=== PATIENT | male | born 1990 | race Caucasian/White ===

== ENCOUNTER 2017-01-24 18:49 | Inpatient (IN) | payer SELFPAY ==
[~2017-01-24] VITALS: Ht 162.6 cm; Wt 66.4 kg
[2017-01-24 19:27] VITALS: BP 131/70; PULSE 113; RESP 18; TEMP 97.5; O2SAT 96
[2017-01-24] MEDS ORDERED: SODIUM CHLOR 0.9% 1000 ML INJ 1,000 ML IV ONE (23:39)
[2017-01-24] MEDS ORDERED: SODIUM CHLORIDE 0.9% FLUSH 10 ML FLUSH IVF PRN (23:45)
[2017-01-24] MEDS ORDERED: ONDANSETRON HCL 4 MG/2 ML VIAL IV PUSH ONE (23:45)
--- NOTE | 2017-01-24 23:45 | PD ---
HPI Chief Complaint: Abnormal Results Time Seen by Provider: 23:39 Travel History International Travel<30 days: No Contact w/Intl Traveler<30days: No Traveled to known affect area: No History of Present Illness HPI 26-year-old male presents to the emergency department by private transportation for complaint of elevated blood sugar nausea and vomiting and no insulin since yesterday. Patient is visiting from [place]. Patient has been an insulin- dependent diabetic 14 years. Patient denies any fever or chills hematemesis coffee-ground emesis chest pain shortness of breath abdominal flank pain or dysuria. Patient has noted decreased urine output. Patient complains of generalized weakness. Patient typically takes Humalog 18 units and Lantus 33 units daily reportedly. PFSH Past Medical History Narrative Medical Diabetes; no surgeries; no tobacco use; nursing notes reviewed Diabetes: Yes ?: Not Social History Tobacco Use: No Allergies-Medications (Allergen,Severity, Reaction): Coded Allergies: No Known Allergies (Unverified , 01/24/17) Reported Meds & Prescriptions Reported Meds & Active Scripts Active Reported Lantus Inj (Insulin Glargine) 1,000 Unit/10 Ml Vial 33 Units SQ HS Humalog Inj (Insulin Human Lispro) 1,000 Unit/10 Ml Vial 5-25 Units SQ ACHS Max dose at bedtime:( )units; sugars < 70,(0)units; sugars 150-199,(5)units; sugars 200-249,(10)units; sugars 250-299,(15)units; sugars 300-349,(20)units; sugars more than 349,(25)units. Narrative Medication Insulin Review of Systems Except as stated in HPI: all other systems reviewed are Neg General / Constitutional: No: Fever, Chills HENT: No: Congestion Cardiovascular: No: Chest Pain or Discomfort Respiratory: No: Shortness of Breath Gastrointestinal: Positive: Nausea, Vomiting, No: Abdominal Pain Genitourinary: Positive: Decreased Urinary Output Musculoskeletal: No: Pain Skin: No Rash Neurologic: Positive: Weakness Psychiatric: No: Anxiety Hematologic/Lymphatic: No: Lymph Node Enlargement Physical Exam Narrative GENERAL: Well-developed well-nourished male in obvious discomfort and mild respiratory distress; GCS 15; triage glucose 482 SKIN: Warm and dry. HEAD: Normocephalic. EYES: No scleral icterus. No injection or drainage. ENT: Mucous membranes dry NECK: Supple, trachea midline. No JVD or lymphadenopathy. CARDIOVASCULAR: Increased Regular rate and rhythm without murmurs, gallops, or rubs. RESPIRATORY: Breath sounds equal bilaterally. No accessory muscle use. GASTROINTESTINAL: Abdomen soft, non-tender, nondistended. MUSCULOSKELETAL: No cyanosis, or edema. BACK: Nontender without obvious deformity. No CVA tenderness. Data Data Last Documented VS Vital Signs Date Time Temp Pulse Resp B/P (MAP) Pulse Ox O2 Delivery O2 Flow Rate FiO2 01/25/17 00:32 120 100 Room Air 01/25/17 00:27 28 131/50 (77) 01/24/17 19:27 97.5 Orders Orders Electrocardiogram (01/24/17 23:39) Complete Blood Count With Diff (01/24/17 23:39) Comprehensive Metabolic Panel (01/24/17 23:39) Beta Hydroxybutyrate (Acetone) (01/24/17 23:39) Lactic Acid (01/24/17 23:39) Urinalysis - C+S If Indicated (01/24/17 23:39) Chest, Single Ap (01/24/17 23:39) Blood Gas Venous (Vbg) (01/24/17 23:39) Blood Glucose (01/24/17 23:39) Ecg Monitoring (01/24/17 23:39) Iv Access Insert/Monitor (01/24/17 23:39) Oximetry (01/24/17 23:39) NPO (01/24/17 23:39) Sodium Chlor 0.9% 1000 Ml Inj (Ns 1000 M (01/24/17 23:39) Sodium Chlor 0.9% 1000 Ml Inj (Ns 1000 M (01/25/17 00:09) Sodium Chloride 0.9% Flush (Ns Flush) (01/24/17 23:45) Ondansetron Inj (Zofran Inj) (01/24/17 23:45) Insulin Human Regular Inj (Novolin R Inj (01/25/17 00:00) Stone Engraver / Telemetry HECTOR.Q8H (01/25/17 00:25) ^ Insert Iv (01/25/17 00:25) Diet Npo (01/25/17 Breakfast) Sodium Chlor 0.9% 1000 Ml Inj (Ns 1000 M (01/25/17 00:25) Dext 5%-Nacl 0.9% 1000 Ml Inj (D5w-Ns 10 (01/25/17 00:25) Insulin Human Regular Inj (Novolin R Inj (01/25/17 00:30) Insulin Regular (Iv Infusion) (Novolin R (01/25/17 00:30) Potassium Chlor 40 Meq Premix (Kcl 40 Me (01/25/17 00:30) Potassium Chlor 40 Meq Premix (Kcl 40 Me (01/25/17 00:30) Potassium Chlor 20 Meq Premix (Kcl 20 Me (01/25/17 00:30) Potassium Chlor 20 Meq Premix (Kcl 20 Me (01/25/17 00:30) Potassium Chlor 20 Meq Premix (Kcl 20 Me (01/25/17 00:30) Potassium Chlor 20 Meq Premix (Kcl 20 Me (01/25/17 00:30) Potassium Chlor 20 Meq Premix (Kcl 20 Me (01/25/17 00:30) Potassium Chlor 20 Meq Premix (Kcl 20 Me (01/25/17 00:30) Sodium Bicarbonate 8.4% Inj (Sodium Bica (01/25/17 00:30) Sodium Bicarbonate 8.4% Inj (Sodium Bica (01/25/17 00:30) Sodium Phosphate Inj (Sodium Phosphate I (01/25/17 00:30) Hemoglobin (Hgb) A1c (01/25/17 00:25) Basic Metabolic Panel (Bmp) (01/25/17 05:25) Basic Metabolic Panel (Bmp) (01/25/17 11:25) Basic Metabolic Panel (Bmp) (01/25/17 17:25) Basic Metabolic Panel (Bmp) (01/25/17 23:25) Magnesium (Mg) (01/25/17 05:25) Magnesium (Mg) (01/25/17 11:25) Magnesium (Mg) (01/25/17 17:25) Magnesium (Mg) (01/25/17 23:25) Phosphorus (Po4) (01/25/17 05:25) Phosphorus (Po4) (01/25/17 11:25) Phosphorus (Po4) (01/25/17 17:25) Phosphorus (Po4) (01/25/17 23:25) Beta Hydroxybutyrate (Acetone) (01/25/17 11:25) Beta Hydroxybutyrate (Acetone) (01/25/17 23:25) Admit Order (Ed Use Only) (01/25/17 ) ^ Saline Lock (01/25/17 00:57) Resp Oxygen Tung C Titrat 1-4 L (01/25/17 ) Notify Dr: Other (01/25/17 00:57) Sodium Chloride 0.9% Flush (Ns Flush) (01/25/17 09:00) Sodium Chloride 0.9% Flush (Ns Flush) (01/25/17 01:00) Labs Laboratory Tests Test 01/25/17 00:05 01/25/17 00:12 Blood Gas Puncture Site IV Blood Gas Patient Temperature 98.6 Venous Blood pH 7.06 Venous Blood Partial Pressure CO2 18 mmHg Venous Blood Partial Pressure O2 70 mmHg Venous Blood HCO3 5 mmol/L Venous Blood Oxygen Saturation 82 % Venous Blood Oxygen Content 18.4 Vol % Venous Blood Base Excess -23.6 mmol/L Oxygen Delivery Device ROOM AIR Blood Gas Inspired Oxygen 21 % MDM Medical Decision Making Medical Screen Exam Complete: Yes Emergency Medical Condition: Yes Medical Record Reviewed: Yes Interpretation(s) Venous pH 7.06 EKG sinus tachycardia rate [address] elevation prominent T waves no acute injury pattern change noted Differential Diagnosis Hyperglycemia, DKA, dehydration, electrolyte disturbance Narrative Course Triage glucose 482 patient is tachycardiac appears dehydrated and has been without his insulin for greater than 24 hours concern for hyperglycemia related to dehydration but also concerning for DKA in view of vomiting and tachypnea Patient placed on case management associate, IV access obtained, additional Accu-Chek obtained; patient administered 2 L normal saline; specimens collected and sent for resulting; patient given Zofran 4 mg IV repeat glucose 568 At 12:27 AM patient's venous pH is 7.057 patient is in DKA will initiate ED DKA protocol Physician Communication Physician Communication iscussed with Dr Yee --will accept to her service admit to [facility] ICU Diagnosis Primary Impression: DKA (diabetic ketoacidoses) Admitting Information Admitting Physician Requests: Admit Inessa Gama MD Jan 24, 2017 23:45
[2017-01-24] MEDS ORDERED: HUMALOG SQ (23:48)
[2017-01-24] MEDS ORDERED: LANTUS2P SQ (23:49)
[2017-01-25] VITALS (15 sets, daily range): BP systolic 96–131; BP diastolic 50–70; PULSE 102–120; RESP 17–28; TEMP 97.2–98.6; O2SAT 99–100
[2017-01-25] MEDS ORDERED: SODIUM CHLOR 0.9% 1000 ML INJ 1,000 ML IV ONE (00:09)
[2017-01-25] MEDS ORDERED: SODIUM CHLOR 0.9% 1000 ML INJ 1,000 ML IV SCH (00:25)
--- NOTE | 2017-01-25 00:26 | RADRPT ---
EXAM DATE/TIME: 01/25/2017 00:07 [facility] COMPARISON: No previous studies available for comparison. INDICATIONS : Shortness of breath. MEDICAL HISTORY : None. SURGICAL HISTORY : None. ENCOUNTER: Initial ACUITY: 1 day PAIN SCORE: 0/10 LOCATION: Bilateral chest FINDINGS: A single view of the chest demonstrates the lungs to be symmetrically aerated without evidence of mas s, infiltrate or effusion. The cardiomediastinal contours are unremarkable. Osseous structures are intact. CONCLUSION: No acute disease. Graeme Pichardo MD on January 25, 2017 at 0:23 Board Certified Radiologist. This report was verified electronically.
[2017-01-25 00:27] LABS: BLOOD GAS VENOUS BASE EXCESS -23.6 mmol/L (-2-2); BLOOD GAS VENOUS HCO3 5 mmol/L (22-26); BLOOD GAS VENOUS O2 CONTENT 18.4 Vol % (9.0-17.0); BLOOD GAS VENOUS O2 HGB SAT 82 % (70-76); BLOOD GAS VENOUS PCO2 18 mmHg (44-48); BLOOD GAS VENOUS PO2 70 mmHg (35-40); BLOOD GAS VENOUS pH 7.06 (7.360-7.400); CRITICAL VALUE YES; DRAW SITE IV; FIO2 21 %; OXYGEN DEVICE ROOM AIR; STAT YES; TEMP CORR TO 98.6
[2017-01-25] MEDS ORDERED: SODIUM BICARBONATE 8.4% SOLN 50 MEQ/50 ML VIAL IV PRN ×2 (00:30)
[2017-01-25] MEDS ORDERED: POTASSIUM CHLOR 40 MEQ PREMIX 100 ML IV PRN ×2 (00:30)
[2017-01-25] MEDS ORDERED: INSULIN HUMAN REGULAR 1,000 UNITS/10 ML VIAL IV PUSH ONE ×2 (00:30)
[2017-01-25] MEDS ORDERED: SODIUM PHOSPHATE INJ 15 MMOL in SODIUM CHLORIDE 0.9% INJ 100 ML IV PRN (00:30)
[2017-01-25] MEDS ORDERED: POTASSIUM CHLOR 20 MEQ PREMIX 100 ML IV PRN ×6 (00:30)
[2017-01-25] MEDS ORDERED: INSULIN REGULAR (IV INFUSION) 100 UNITS in SODIUM CHLORIDE 0.9% INJ 99 ML IV SCH (00:30)
[2017-01-25] MEDS ORDERED: SODIUM CHLORIDE 0.9% FLUSH 10 ML FLUSH IVF PRN (01:00)
[2017-01-25 01:02] LABS: AUTOMATED NEUTROPHIL # 21.8 TH/MM3 (1.8-7.7); BASOPHIL # 0.2 TH/MM3 (0-0.2); BASOPHIL % 0.7 % (0.0-2.0); EOSINOPHIL % 0.1 % (0.0-4.0); HEMATOCRIT 49.3 % (39.0-51.0); LYMPH % 10.5 % (9.0-44.0); LYMPHOCYTE # 2.7 TH/MM3 (1.0-4.8); MEAN CELL VOLUME 89.1 FL (80.0-100.0); MEAN CORPUSCULAR HEMOGLOBIN 28.2 PG (27.0-34.0); MEAN CORPUSCULAR HGB CONC 31.6 % (32.0-36.0); NEUT % 84.7 % (16.0-70.0); PLATELET COUNT 461 TH/MM3 (150-450); RED BLOOD COUNT 5.53 MIL/MM3 (4.50-5.90); RED CELL DISTRIBUTION WIDTH 13.3 % (11.6-17.2); WHITE BLOOD COUNT 25.7 TH/MM3 (4.0-11.0)
[2017-01-25 01:09] LABS: HEMO FLAGS AUTO DIFF
[2017-01-25 01:16] LABS: CHLORIDE 89 MEQ/L (98-107); POTASSIUM 6.1 MEQ/L (3.5-5.1); SODIUM (NA) 126 MEQ/L (136-145)
[2017-01-25 01:20] LABS: ANION GAP 33 MEQ/L (5-15); BICARBONATE 4.4 MEQ/L (21.0-32.0); BLOOD UREA NITROGEN 29 MG/DL (7-18)
[2017-01-25 01:23] LABS: ALT (GPT) 30 U/L (12-78); AST (GOT) 23 U/L (15-37); GLOMERULAR FILTRATION RATE 62 ML/MIN (>89)
[2017-01-25 01:24] LABS: TOTAL BILIRUBIN ADULT 0.5 MG/DL (0.2-1.0)
[2017-01-25 01:28] LABS: BANDS 5 % (0-6); BASOPHILS 1 % (0-2); METAMYELOCYTES 4 % (0-1); NEUTROPHIL # MANUAL DIFF 22.4 TH/MM3 (1.8-7.7); POLYS (SEG NEUTROPHILS) 78 % (16-70); WBC DIFF SAMPLE 100
[2017-01-25 01:29] LABS: PLATELET ESTIMATE SMEAR NORMAL (NORMAL); PLATELET MORPHOLOGY CLUMPED (NORMAL); SCAN/DIFF FINAL DIFF MANUAL
[2017-01-25 01:39] LABS: ALKALINE PHOSPHATASE 165 U/L (45-117); BETA-HYDROXYBUTYRATE 13.53 MMOL/L (0.00-0.39)
[2017-01-25 02:16] LABS: GLUCOSE,URINE 1000 OR GREATER mg/dL (NEG); KETONE, URINE 80 OR GREATER mg/dL (NEG); NITRITE,URINE NEG (NEG); PH, URINE 5.5 (5.0-8.5)
[2017-01-25 02:22] LABS: BLOOD, URINE TRACE (NEG); URINE COLOR YELLOW (YELLW/STRAW)
[2017-01-25 02:24] LABS: MUCUS URINE OCC /lpf (OCC); RBC, URINE 0-3 /hpf (0-3)
[2017-01-25 02:25] LABS: COMMENT (UR) CULT NOT INDICATED; CULTURE IF INDICATED CULT NOT INDICATED; SQUAMOUS EPITHELIAL CELL URINE 0-5 /hpf (0-5)
[2017-01-25] MEDS: DEXT 5%-NACL 0.9% 1000 ML INJ 1,000 ML IV SCH ×2 (03:02→08:04)
--- NOTE | 2017-01-25 04:19 | HHI.HP ---
HPI Service Critical Care Medicine Primary Care Physician No Primary Care Physician Admission Diagnosis DKA Diagnosis: Travel History International Travel<30 Days: No Contact w/Intl Traveler <30 Da: No Traveled to Known Affected Are: No History of Present Illness 26 yo WM with PMH of type 1 diabetes mellitus, diagnosed 14 years ago, who is visiting from [place]. He states that his last dose of insulin was at 5 PM on 01/23. 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 His home regimen consists of Humalog 18 units with each meal and Lantus 33 units daily at bedtime. He does not do any carb counting or sliding scale. When he presented to [facility] he was in DKA with glucose of 677, bicarbonate 4.4, anion gap 33, beta hydroxybutyrate 13.53. He had some vomiting (nonbloody nonbilious) earlier today which he states is the black feature that always lets him know he is in DKA. He denies abdominal pain or diarrhea. Denies cough, dysuria, flank pain, rash, chest pain, shortness of breath. He has a mild headache. No neck stiffness or fever. Complains is that he is very thirsty and that he has had polyuria. In the ED he received 2 L normal saline bolus, insulin 6 units IV bolus, started on insulin drip per DKA protocol. There were no beds available at [facility] and therefore he was transferred to [facility] Review of Systems Gastrointestinal: COMPLAINS OF: Nausea, Vomiting Neurologic: COMPLAINS OF: Headache Past Family Social History Allergies: Coded Allergies: No Known Allergies (Unverified , 01/24/17) Past Medical History type 1 diabetes mellitus. He is followed by a primary care physician. He is no longer followed by an nail maker because he lost his medical insurance Hypercholesterolemia Vitamin D deficiency Past Surgical History None Reported Medications Simvastatin 20 mill grams by mouth daily Vitamin D supplementation Humalog 18 units with each meal Lantus 33 units qhs. Family History His father has leukemia and diabetes mellitus Social History He is a nonsmoker. Denies alcohol or illicit drug use He works as a mail truck driver. He is originally from [place] and now lives in [place]. He states he needs to be able to get on a flight back to [place] at 5:30 PM on Tuesday01/26/17. He states he does not have health insurance and is inquiring whether the hospital can provide him enough insulin until he can get back to [place] Physical Exam Vital Signs Vital Signs Date Time Temp Pulse Resp B/P (MAP) Pulse Ox O2 Delivery O2 Flow Rate FiO2 01/25/17 03:20 01/25/17 03:00 117 24 114/54 (74) 100 Room Air 01/25/17 00:32 120 100 Room Air 01/25/17 00:27 120 28 131/50 (77) 100 Room Air 01/24/17 19:27 97.5 113 18 131/70 (90) 96 Physical Exam GENERAL: Well-nourished, well-developed patient who is alert and interactive sitting up in ISC bed. SKIN: Warm and dry. No rash or cellulitis present. HEAD: Atraumatic. Normocephalic. EYES: Pupils equal and round, 2 mm and reactive bilaterally. No scleral icterus. No injection or drainage. ENT: No nasal bleeding or discharge. Mucous membranes pink, dry. No meningismus. NECK: Trachea midline. No JVD. CARDIOVASCULAR: Tachycardic, regular, sinus tach on the monitor with rate of 118. Blood pressure 111/52. No murmurs rubs or gallops. RESPIRATORY: Mildly tachypneic with no accessory muscle use. Clear to auscultation bilaterally with no wheezes Rales or rhonchi. Sats 100% on room air. GASTROINTESTINAL: Abdomen soft, non-tender, nondistended. Bowel sounds present MUSCULOSKELETAL: Extremities without clubbing, cyanosis, or edema. No obvious deformities. NEUROLOGICAL: Awake and alert, oriented 4. No obvious cranial nerve deficits. Motor grossly within normal limits. Normal speech. Laboratory Laboratory Tests Test 01/25/17 00:05 01/25/17 00:12 01/25/17 01:30 01/25/17 02:42 White Blood Count 25.7 Red Blood Count 5.53 Hemoglobin 15.6 Hematocrit 49.3 Mean Corpuscular Volume 89.1 Mean Corpuscular Hemoglobin 28.2 Mean Corpuscular Hemoglobin Concent 31.6 Red Cell Distribution Width 13.3 Platelet Count 461 Mean Platelet Volume 8.0 Neutrophils (%) (Auto) 84.7 Lymphocytes (%) (Auto) 10.5 Monocytes (%) (Auto) 4.0 Eosinophils (%) (Auto) 0.1 Basophils (%) (Auto) 0.7 Neutrophils # (Auto) 21.8 Lymphocytes # (Auto) 2.7 Monocytes # (Auto) 1.0 Eosinophils # (Auto) 0.0 Basophils # (Auto) 0.2 CBC Comment AUTO DIFF Differential Total Cells Counted 100 Neutrophils % (Manual) 78 Band Neutrophils % 5 Lymphocytes % 8 Monocytes % 4 Basophils % 1 Neutrophils # (Manual) 22.4 Metamyelocytes 4 Differential Comment FINAL DIFF MANUAL Platelet Estimate NORMAL Platelet Morphology Comment CLUMPED Blood Urea Nitrogen 29 Creatinine 1.40 Random Glucose 677 Total Protein 8.9 Albumin 4.2 Calcium Level 9.7 Alkaline Phosphatase 165 Aspartate Amino Transf (AST/SGOT) 23 Alanine Aminotransferase (ALT/SGPT) 30 Total Bilirubin 0.5 Sodium Level 126 Potassium Level 6.1 Chloride Level 89 Carbon Dioxide Level 4.4 Anion Gap 33 Estimat Glomerular Filtration Rate 62 Lactic Acid Level 2.2 B-Hydroxybutyrate 13.53 Blood Gas Puncture Site IV Blood Gas Patient Temperature 98.6 Venous Blood pH 7.06 Venous Blood Partial Pressure CO2 18 Venous Blood Partial Pressure O2 70 Venous Blood HCO3 5 Venous Blood Oxygen Saturation 82 Venous Blood Oxygen Content 18.4 Venous Blood Base Excess -23.6 Oxygen Delivery Device ROOM AIR Blood Gas Inspired Oxygen 21 Urine Color YELLOW Urine Turbidity CLEAR Urine pH 5.5 Urine Specific [place] 1.023 Urine Protein TRACE Urine Glucose (UA) 1000 OR GREATER Urine Ketones 80 OR GREATER Urine Occult Blood TRACE Urine Nitrite NEG Urine Bilirubin NEG Urine Leukocyte Esterase NEG Urine RBC 0-3 Urine Squamous Epithelial Cells 0-5 Urine Mucus OCC Microscopic Urinalysis Comment CULT NOT INDICATED Date/Time Source Procedure Growth Status 01/25/17 02:50 Blood Peripheral Aerobic Blood Culture Pending Received 01/25/17 02:50 Blood Peripheral Anaerobic Blood Culture Pending Received Result Diagram: 01/25/17 0005 01/25/17 0005 Caprini VTE Risk Assessment Caprini VTE Risk Assessment: No/Low Risk (score <= 1) Caprini Risk Assessment Model Point Value = 1 Point Value = 2 Point Value = 3 Point Value = 5 Age 41-60 Minor surgery BMI > 25 kg/m2 Swollen legs Varicose veins or History of unexplained or recurrent spontaneous Oral contraceptives or hormone replacement Sepsis (< 1 month) Serious lung disease, including pneumonia (< 1 month) Abnormal pulmonary function Acute myocardial infarction Congestive heart failure (< 1 month) History of inflammatory bowel disease Medical patient at bed rest Age 61-74 Arthroscopic surgery Major open surgery (> 45 min) Laparoscopic surgery (> 45 min) Malignancy Confined to bed (> 72 hours) Immobilizing plaster cast Central venous access Age >= 75 History of VTE Family history of VTE Factor V Leiden Prothrombin [id number] Lupus anticoagulant Anticardiolipin antibodies Elevated serum homocysteine Heparin-induced thrombocytopenia Other congenital or acquired thrombophilia Stroke (< 1 month) Elective arthroplasty Hip, pelvis, or leg fracture Acute spinal cord injury (< 1 month) Prophylaxis Regimen Total Risk Factor Score Risk Level Prophylaxis Regimen 0-1 Low Early ambulation 2 Moderate Order ONE of the following: *Sequential Compression Device (SCD) *Heparin 5000 units SQ BID 3-4 Higher Order ONE of the following medications: *Heparin 5000 units SQ TID *Enoxaparin/Lovenox 40 mg SQ daily (WT < 150 kg, CrCl > 30 mL/min) *Enoxaparin/Lovenox 30 mg SQ daily (WT < 150 kg, CrCl > 10-29 mL/min) *Enoxaparin/Lovenox 30 mg SQ BID (WT < 150 kg, CrCl > 30 mL/min) AND/OR *Sequential Compression Device (SCD) 5 or more Highest Order ONE of the following medications: *Heparin 5000 units SQ TID (Preferred with Epidurals) *Enoxaparin/Lovenox 40 mg SQ daily (WT < 150 kg, CrCl > 30 mL/min) *Enoxaparin/Lovenox 30 mg SQ daily (WT < 150 kg, CrCl > 10-29 mL/min) *Enoxaparin/Lovenox 30 mg SQ BID (WT < 150 kg, CrCl > 30 mL/min) AND *Sequential Compression Device (SCD) Assessment and Plan Assessment and Plan NEURO: Mild headache, likely secondary to DKA/dehydration Tylenol as needed for mild headache. Lortab as needed for breakthrough. RESP: On room air CV: Sinus tachycardia secondary to volume depletion, dehydration, acidemia Received 2 L normal saline bolus in the emergency department. Replacing fluids at a rate of 250 mL per hour as per below. GI: Ice chips FEN/RENAL: Acute kidney injury secondary to dehydration Hyponatremia/pseudohyponatremia - Glucose corrected sodium 131. Acute hyperkalemia secondary to metabolic acidemia secondary to DKA - will improve addressing DKA. Lactic acidemia Received 2 L normal saline bolus. Serial BMP, magnesium, phosphorus every 6 hours.. Replace electrolytes per electrolyte replacement protocol. On insulin drip. Now started on D5 0.9 NaCl at 250 mL per hour. History of vitamin D deficiency. Vitamin D 1000 units daily. ID: Leukocytosis, likely reactive Afebrile without symptoms of infection. UA is negative for evidence of infection. Chest x-ray is clear. Mild lactic acidosis of 2.2 can be explained by his degree of dehydration. We will repeat. Follow-up blood cultures HEME: Thrombocytosis, likely reactive Follow-up CBC ENDO: Type 1 diabetes mellitus DKA Serial electrolytes, D5 0.9 NaCl at 250 L per hour, insulin drip until anion gap closes. Then we'll transition to subcutaneous insulin and ADA diet diet. PROPH: Low risk Caprini score-->early ambulation. Protonix 40 mg by mouth daily for stress ulcer prophylaxis. ACCESS: Peripheral IV providing adequate access at this time Discussed with Dr. Gama. Discussed with [facility]. Level III H&P Evelin Yee MD Jan 25, 2017 04:19
[2017-01-25] MEDS ORDERED: MAGNESIUM HYDROXIDE SUSP 30 ML CUP PO PRN (05:00)
[2017-01-25] MEDS ORDERED: SENNOSIDES 8.6 MG TAB PO PRN (05:00)
[2017-01-25] MEDS ORDERED: CHLORHEXIDINE GLUCONATE 2 % 1 PACK (2 CLOTHS) TOP PRN (05:00)
[2017-01-25] MEDS ORDERED: SODIUM CHLORIDE 0.9% FLUSH 10 ML FLUSH IV FLUSH PRN (05:00)
[2017-01-25] MEDS ORDERED: LACTULOSE SYRUP 20 GM/30 ML CUP PO PRN (05:00)
[2017-01-25] MEDS ORDERED: BISACODYL 10 MG SUPP RECTAL PRN (05:00)
[2017-01-25] MEDS ORDERED: MISCELLANEOUS NURSING INFORMATION XX SCH (05:00)
[2017-01-25 05:33] LABS: HEMATOCRIT 41.6 % (39.0-51.0); MEAN CORPUSCULAR HEMOGLOBIN 29.8 PG (27.0-34.0); MEAN CORPUSCULAR HGB CONC 33.9 % (32.0-36.0); PLATELET COUNT 368 TH/MM3 (150-450); RED BLOOD COUNT 4.73 MIL/MM3 (4.50-5.90); RED CELL DISTRIBUTION WIDTH 13.3 % (11.6-17.2); REVIEW FLAG FINAL; WHITE BLOOD COUNT 18.7 TH/MM3 (4.0-11.0)
[2017-01-25 06:22] LABS: BICARBONATE 11.4 MEQ/L (21.0-32.0); MAGNESIUM 2.2 MG/DL (1.5-2.5); POTASSIUM 4.3 MEQ/L (3.5-5.1)
[2017-01-25] MEDS: ONDANSETRON HCL 4 MG/2 ML VIAL IV PUSH PRN ×2 (09:54→14:04)
[2017-01-25 12:17] LABS: ANION GAP 12 MEQ/L (5-15); BLOOD UREA NITROGEN 12 MG/DL (7-18); CHLORIDE 110 MEQ/L (98-107); GLOMERULAR FILTRATION RATE 109 ML/MIN (>89); MAGNESIUM 1.9 MG/DL (1.5-2.5); POTASSIUM 4.7 MEQ/L (3.5-5.1); SODIUM (NA) 138 MEQ/L (136-145)
[2017-01-25 12:21] LABS: BETA-HYDROXYBUTYRATE 3.56 MMOL/L (0.00-0.39)
[2017-01-25] MEDS: INSULIN DETEMIR 100 UNITS/ML VIAL SQ SCH ×2 (14:00→22:28)
[2017-01-25] MEDS ORDERED: DC previous DKA orders (HMC 1917) ONE (14:00)
[2017-01-25] MEDS ORDERED: GLUCAGON 1 MG/ML VIAL OTHER PRN (14:00)
[2017-01-25] MEDS ORDERED: DEXTROSE 50% IN WATER 50 ML VIAL(D50) IV PRN (14:00)
[2017-01-25] MEDS ORDERED: DC Insulin drip 2 hrs post basal insulin dose ONE (14:00)
[2017-01-25] MEDS: ACETAMINOPHEN 325 MG TAB PO PRN (14:03)
--- NOTE | 2017-01-25 14:13 | EKG ---
Date Performed: 01/25/2017 Time Performed: 00:17:45 PTAGE: 26 years EKG: SINUS TACHYCARDIA ST ELEVATION, PROBABLY EARLY REPOLARIZATION NONSPECIFIC T-WAVE ABNORMALIT Y ABNORMAL RHYTHM ECG NO PREVIOUS TRACING DOCTOR: Cheri Ramey Interpretating Date/Time 01/25/2017 14:07:35
[2017-01-25 15:59] LABS: HEMOGLOBIN A1a 1.4 %; HEMOGLOBIN LA1C 2.7 %; HEMOGLOBIN P3 5.4 %
[2017-01-25] MEDS: DEXT 5%-NACL 0.45% 1000 ML INJ 1,000 ML IV SCH ×2 (16:00→22:26)
[2017-01-25] MEDS: INSULIN ASPART SUPPLEMENTAL SCALE SQ SCH ×2 (16:00→22:27)
[2017-01-25] MEDS: SODIUM CHLORIDE 0.9% FLUSH 10 ML FLUSH IV FLUSH SCH ×2 (20:19)
[2017-01-25] MEDS: DOCUSATE SODIUM 50 MG/SENNA 8.6 MG TAB PO SCH (20:19)
[2017-01-25] MEDS: ACETAMINOPHEN/HYDROcodone 325 MG/5 MG TAB PO PRN (20:20)
[2017-01-26 00:35] VITALS: BP 108/60; PULSE 102; RESP 17; TEMP 96.3; O2SAT 99
[2017-01-26 02:49] LABS: AUTOMATED NEUTROPHIL # 8.1 TH/MM3 (1.8-7.7); BASOPHIL % 0.3 % (0.0-2.0); EOSINOPHIL # 0.1 TH/MM3 (0-0.4); EOSINOPHIL % 0.6 % (0.0-4.0); HEMATOCRIT 39.1 % (39.0-51.0); HEMO FLAGS DIFF FINAL; LYMPH % 15.8 % (9.0-44.0); LYMPHOCYTE # 1.7 TH/MM3 (1.0-4.8); MEAN CELL VOLUME 86.7 FL (80.0-100.0); MEAN CORPUSCULAR HEMOGLOBIN 29.9 PG (27.0-34.0); MEAN CORPUSCULAR HGB CONC 34.5 % (32.0-36.0); MONO % 6.3 % (0.0-8.0); PLATELET COUNT 336 TH/MM3 (150-450); RED BLOOD COUNT 4.52 MIL/MM3 (4.50-5.90); RED CELL DISTRIBUTION WIDTH 13.5 % (11.6-17.2); WHITE BLOOD COUNT 10.6 TH/MM3 (4.0-11.0)
[2017-01-26] MEDS ORDERED: CHLORHEXIDINE GLUCONATE 2 % 1 PACK (2 CLOTHS) TOP SCH (04:00)
[2017-01-26 04:40] VITALS: BP 116/56; PULSE 97; RESP 18; TEMP 96.4; O2SAT 99
[2017-01-26 08:00] VITALS: BP 113/64; PULSE 100; RESP 16; TEMP 96.6; O2SAT 99
[2017-01-26] MEDS: DEXT 5%-NACL 0.45% 1000 ML INJ 1,000 ML IV SCH (08:00)
--- NOTE | 2017-01-26 08:27 | HHI.PR ---
Subjective Remarks Pt feels well. No nausea or vomiting. No abdominal pain. Pt states he had no URI or lower urinary tract complaints prior to loosing his insulin. He would like to eat breakfast. he tells me that he has a flight out of [place] today in the afternoon to go back home and is hopeful to make it to the airport on time. Pt has no complaints at this time. Feels comfortable going home. Tells me that he takes 18units of humalog prior to meals and 30units of lantus at bedtime. Objective Vitals Vital Signs Date Time Temp Pulse Resp B/P (MAP) Pulse Ox O2 Delivery O2 Flow Rate FiO2 01/26/17 04:40 96.4 97 18 116/56 (76) 99 01/26/17 00:35 96.3 102 17 108/60 (76) 99 01/25/17 22:00 102 01/25/17 20:00 98.4 110 25 106/50 (68) 100 01/25/17 20:00 108 01/25/17 19:22 100 21 01/25/17 19:00 100 Room Air 01/25/17 18:00 105 01/25/17 16:00 111 01/25/17 16:00 98.6 111 24 97/70 (79) 100 01/25/17 14:00 110 01/25/17 13:51 99 21 01/25/17 12:00 111 01/25/17 12:00 98.3 111 18 96/50 (65) 99 01/25/17 10:00 110 I/O 01/25/17 01/25/17 01/25/17 01/26/17 01/26/17 01/26/17 07:00 15:00 23:00 07:00 15:00 23:00 Intake Total 3863.9 ml 2484 ml Output Total 1300 ml Balance 2563.9 ml 2484 ml Intake IV Total 3863.9 ml 2484 ml Output Urine Total 1300 ml # Voids 2 1 2 Result Diagram: 01/26/17 0240 01/25/17 1138 Imaging Last Impressions Chest X-Ray 01/24/17 5599 Signed Impressions: Service Date/Time: Wednesday, January 25, 2017 00:07 - CONCLUSION: No acute disease. Graeme Pichardo MD Objective Remarks GENERAL: Well-nourished, well-developed patient who is alert and interactive sitting up in ISC bed. EYES: EOMI NECK: Trachea midline. No JVD. CARDIOVASCULAR: RRR w no murmurs RESPIRATORY: Clear to auscultation bilaterally with no wheezes GASTROINTESTINAL: Abdomen soft, non-tender to deep palpation, nondistended. Bowel sounds present MUSCULOSKELETAL: Extremities without edema. No obvious deformities. NEUROLOGICAL: Awake and alert, oriented 4. No obvious cranial nerve deficits. Motor grossly within normal limits. Normal speech. A/P Assessment and Plan DKA: pt was admitted for DKA in the intensive care unit secondary to missing dose of insulin (lost vs stolen). Pt now is feeling well. Would like to eat breakfast and is hopeful to leave this morning as he has a flight to catch in [place] to go back home. Pt states that he takes 18units of humalog prior to meals and 30units of lantus at bedtime. New scripts will be given to patient. In addition, pt confirms that he had no infectious symptomatology prior to missing his dose of insulin which could have been the cause of him going to DKA. Leukocytosis has resolved. lactic acid neg. anion gap closed. Pt was noted to have elevated lipase levels however pt denies any abdominal pain. I did call the microbiology lab and pt's blood cx so far neg. Will go ahead and discharge pt this morning after he eats breakfast so he can make it to [place] airport. Pt understands that blood cx are not finalized however we do have a very good reason why he went into DKA which is him not taking his dose of insulin due to it being stolen vs lost. Pt must f/u w his PCP when he gets home Hypercholesterolemia: diet controlled Vitamin D deficiency: continue over the counter vit D supplementation and management as an outpatient. Discharge Planning d/c home if no issues w breakfast f/u w PCP in 1 week scripts in chart activity ad renny condition stable Yue Hathaway MD Jan 26, 2017 08:27
[2017-01-26] MEDS ORDERED: LANTUS2P SQ (08:30)
[2017-01-26] MEDS ORDERED: HUMALOG SQ (08:30)
[2017-01-26] MEDS ORDERED: GLUCKIT15 (08:32)
[2017-01-26] MEDS ORDERED: LANCETS1 MI1 (08:32)
[2017-01-26] MEDS ORDERED: GLUCTES12 (08:32)
[2017-01-26] MEDS ORDERED: INSU1MIS15 (08:32)
[2017-01-26] MEDS: PANTOPRAZOLE SOD 40 MG DELAYED RELEASE TAB PO SCH ×2 (09:00→09:53)
[2017-01-26] MEDS: CHOLECALCIFEROL (VIT D3) 1000 UNIT TAB PO SCH ×2 (09:00→09:53)
[2017-01-26] MEDS: SODIUM CHLORIDE 0.9% FLUSH 10 ML FLUSH IV FLUSH SCH ×2 (09:00→09:55)
[2017-01-26] MEDS: DOCUSATE SODIUM 50 MG/SENNA 8.6 MG TAB PO SCH (09:53)
[2017-01-26] MEDS: INSULIN DETEMIR 100 UNITS/ML VIAL SQ SCH (09:53)
[2017-01-26] MEDS: INSULIN ASPART SUPPLEMENTAL SCALE SQ SCH ×2 (09:54→12:00)
[2017-01-26] MEDS: ACETAMINOPHEN 325 MG TAB PO PRN (09:58)
[2017-01-26] MEDS: ACETAMINOPHEN/HYDROcodone 325 MG/5 MG TAB PO PRN (12:28)
== END 2017-01-26 14:20 | disposition home or self-care (01) | DRG 638 ==
LOC: PHED 18:49 → PHEDA 01-25 00:59 → N03B 01-25 03:40 → HOCB 01-26 00:18
PROVIDERS: ADMIT Hospitalist; ATTEND Hospitalist
DX: E10.10 Type 1 diabetes mellitus with ketoacidosis without coma (principal); E87.1 Hypo-osmolality and hyponatremia; N17.9 Acute kidney failure, unspecified; E87.5 Hyperkalemia; E55.9 Vitamin D deficiency, unspecified; E78.00 Pure hypercholesterolemia, unspecified; E86.0 Dehydration; Z79.4 Long term (current) use of insulin; D47.3 Essential (hemorrhagic) thrombocythemia
CPT/HCPCS: 71010; 80048; 80053; 81001; 82010; 82805; 82948; 83036; 83605; 83690; 83735; 84100; 84132; 85007; 85025; 85027; 87040; 87641; 93005; 96361; 96374; 96375; J1815; J1817; J2405; J3480; J7030; J7042